=== PATIENT | female | born 1990 | race Hispanic/Latino ===

== ENCOUNTER 2018-11-03 20:11 | Emergency (ER) | payer BC ==
[2018-11-03 20:19] VITALS: RESP 18
[2018-11-03] MEDS ORDERED: Silver Sulfadiazine 1% CREAM (50 gm) ONE (20:31)
[2018-11-03] MEDS ORDERED: Silver Sulfadiazine 1% Cream (20 gm) TOP STA (20:36)
[2018-11-03] MEDS ORDERED: Bacitracin/Neomycin/Polymyxin 30GM OINT TOP STA (20:37)
[2018-11-03] MEDS ORDERED: Tdap Vaccine 0.5 ml Vial (10-64 yrs) IM ONE ×2 (20:38→21:18)
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
[2018-11-03 21:46] VITALS: BP 126/55; PULSE 72; TEMP 98.7
[2018-11-03 23:44] VITALS: O2SAT 98
== END 2018-11-03 21:30 | disposition home or self-care (01) ==
LOC: H.ER 20:11
DX: T23.001A Burn of unspecified degree of right hand, unspecified site, initial encounter (principal)